=== PATIENT | male | born 1990 | race Caucasian/White ===

== ENCOUNTER 2018-12-24 18:20 | Emergency (ER) | payer OTHER ==
[~2018-12-24] VITALS: Ht 177.8 cm; Wt 97.5 kg
[2018-12-24] MEDS ORDERED: ANTABUSE250 MG PO (18:28)
[2018-12-24 18:41] VITALS: BP 126/76
--- NOTE | 2018-12-24 18:43 | NUR ---
ED Nurse Note: pt came to ed for blood evaluation, pt stated that he needs it to be able to get a job in [place], pt denies any pain. no complaint at the moment.
--- NOTE | 2018-12-24 19:10 | NUR ---
ED Nurse Note: Received report from Leatha/ RN. Pt is A/O X4. VSS.
--- NOTE | 2018-12-24 19:20 | Emergency Room Report ---
History of Present Illness General Chief Complaint: General Complaint Source: Medical Record Present Illness HPI 28-year-old male presents to the emergency department requesting medical screening exam. Patient initially is reporting that he requires a physical examination for work and states that he has had several abnormal liver enzyme results of the last few months. Patient denies pain at this time he denies fevers, chills or history of hepatitis, IV drug use or alcohol abuse. He denies trauma or fall. Denies nausea, vomiting, constipation or diarrhea. Allergies: Coded Allergies: No Known Allergies (Unverified , 12/24/18) Patient History Past Medical History: see triage record Past Surgical History: none Pertinent Family History: none Reviewed Nursing Documentation: PMH: Agreed; PSxH: Agreed Nursing Documentation-PMH Past Medical History: No History, Except For Review of Systems All Other Systems: negative except mentioned in HPI Physical Exam Vital Signs Date Time Temp Pulse Resp B/P (MAP) Pulse Ox O2 Delivery O2 Flow Rate FiO2 12/24/18 18:25 98.1 89 16 95 Room Air 12/24/18 18:41 126/76 Sp02 EP Interpretation: reviewed, normal General Appearance: no apparent distress, alert, GCS 15, non-toxic Head: normocephalic, atraumatic Eyes: bilateral eye normal inspection, bilateral eye PERRL ENT: hearing grossly normal, normal voice Neck: full range of motion Respiratory: lungs clear, normal breath sounds, speaking full sentences Cardiovascular #1: regular rate, rhythm Gastrointestinal: non tender, soft Musculoskeletal: gait/station normal, normal range of motion, non-tender Neurologic: alert, oriented x3, responsive, motor strength/tone normal, sensory intact, normal gait, speech normal, grossly normal Psychiatric: judgement/insight normal Skin: normal color, no rash, warm/dry, well hydrated Medical Decision Making PA Attestation Dr. Bustillos is my supervising Physician whom patient management has been discussed with. Diagnostic Impression: Primary Impression: Encounter for medical screening examination ER Course 28-year-old male presents to the emergency department requesting medical screening exam. Patient initially is reporting that he requires a physical examination for work and states that he has had several abnormal liver enzyme results of the last few months. Patient denies pain at this time he denies fevers, chills or history of hepatitis, IV drug use or alcohol abuse. He denies trauma or fall. Denies nausea, vomiting, constipation or diarrhea. Ddx considered but are not limited to AMS, ETOH, infection, Trauma/Fall, CVA, VT , Psych, homelessness Vital signs: are WNL, pt. is afebrile H&PE are most consistent with Normal Emergent Medical Screening Exam- There is no acute injury or emergent disease process noted at this time. pt. is NAD, NON- toxic, able to answer questions appropriately, pt. is oriented, and no signs of trauma or focal neurological deficits. ORDERS: none required at this time, the diagnosis is clinical ED INTERVENTIONS: None required at this time Pt. is stable for close outpatient follow up and more in depth evaluation to abnormal labs on a non-emergent basis. DISCHARGE: At this time pt. is stable for d/c to home. Will provide printed patient care instructions, and any necessary prescriptions. Care plan and follow up instructions have been discussed with the patient prior to discharge. Last Vital Signs Date Time Temp Pulse Resp B/P (MAP) Pulse Ox O2 Delivery O2 Flow Rate FiO2 12/24/18 18:41 98.1 89 16 126/76 95 Room Air Disposition: HOME, SELF-CARE Condition: Stable Patient Instructions: Medical Screening Exam Additional Instructions: Normal Emergent Medical Screening Exam- There is no acute injury or emergent disease process noted at this time. Take previously prescribed medications as directed. Follow up with a Primary Care Provider in 3-5 days, even if your symptoms have resolved. Return sooner to ED if new symptoms occur, or current symptoms become worse. - Please note that this Emergency Department Report was dictated using [employer] administrator technology software, occasionally this can lead to erroneous entry secondary to interpretation by the dictation equipment. Gladis Taylor December 24, 2018 19:20
[2018-12-24 19:34] VITALS: BP 122/74
--- NOTE | 2018-12-24 19:34 | NUR ---
ER DISCHARGE NOTE: Patient is cleared to be discharged per Gladis/RUPAL, Suture done. Pt is aox4 on room air with stable vital signs. Pt was given dc and prescription instructions and was able to verbalize understanding. Pt ID band removed. Pt is able to ambulate with steady gait and took all belongings.
== END 2018-12-24 19:34 | disposition home or self-care (01) ==
LOC: EMR 19:10
DX: Z00.00 Encounter for general adult medical examination without abnormal findings (principal)
CPT/HCPCS: 99281